=== PATIENT | male | born 1980 | race Caucasian/White ===

== ENCOUNTER 2021-04-11 04:44 | Day surgery (SDC) | payer OTHER ==
[2021-04-06 17:07] VITALS: BMI 27.8
[~2021-04-11 04:44] MED LIST: BUPIVACAINE HCL/PF 0.5% (5MG/ML) 10 ML VIAL IJ ONE; LIDOCAINE HCL 1%, 10 MG/ML (20ML VIAL) NR ONE
[2021-04-11] MEDS ORDERED: oxyCODONE HCL 5 MG TABLET PO PRN ×2 (13:12)
[2021-04-11] MEDS ORDERED: ONDANSETRON 4 MG/2 ML VIAL IVPUSH PRN (13:12)
[2021-04-11] MEDS ORDERED: LACTATED RINGERS SOLUTION 1,000 ML IV SCH (13:15)
[2021-04-11] MEDS ORDERED: BUPIVACAINE HCL/PF 0.5% (5MG/ML) 10 ML VIAL ONE (13:25)
[2021-04-11] MEDS ORDERED: LIDOCAINE HCL 1%, 10 MG/ML (20ML VIAL) ONE (13:25)
[2021-04-11] MEDS ORDERED: PROPOFOL 20 ML ONE ×2 (13:26)
[2021-04-11] MEDS ORDERED: MIDAZOLAM HCL 2 MG/2 ML SINGLE DOSE VIAL ONE ×3 (13:26→13:50)
[2021-04-11] MEDS ORDERED: ceFAZolin SODIUM 1 GM VIAL IVPB ONE (13:52)
[2021-04-11] MEDS ORDERED: BUPIVACAINE HCL/PF 0.5% (5MG/ML) 10 ML VIAL IJ ONE (13:55)
[2021-04-11] MEDS ORDERED: LIDOCAINE HCL 1%, 10 MG/ML (20ML VIAL) NR ONE (13:55)
[2021-04-11] MEDS ORDERED: SEVOFLURANE 250 ML BTL ONE (14:17)
[2021-04-11 15:12] VITALS: TEMP 98
[2021-04-11 16:13] VITALS: BP 132/62; PULSE 82
== END 2021-04-11 16:15 | disposition home or self-care (01) ==
LOC: JASU-SURG 04:44
PROVIDERS: ATTEND Urology
PROC: 0VTQ0ZZ Resection of Bilateral Vas Deferens, Open Approach (ICD-10-PCS; principal; 2021-04-11 13:00)
DX: Z30.2 Encounter for sterilization (principal)
CPT/HCPCS: 88302-TC